=== PATIENT | male | born 1965 | race Caucasian/White ===

== ENCOUNTER → 2018-06-14 14:22 | Outpatient (CLI) | payer BC, SELFPAY ==
[2018-06-13 09:17] VITALS: BMI 36.0
== END ==
PROVIDERS: Family Provider Family Medicine; PCP Family Medicine; Referring Provider Physician Assistant; Visit Provider Physician Assistant
DX: J02.9 Acute pharyngitis, unspecified (principal)
CPT/HCPCS: 87081